=== PATIENT | female | born 1985 | race Caucasian/White ===

== ENCOUNTER 2017-09-09 16:20 | Emergency (ER) | payer OTHER ==
[~2017-09-09] VITALS: Ht 162.6 cm; Wt 61.9 kg
[2017-09-09 16:30] VITALS: Ht 162.6 cm; Wt 61.9 kg
[2017-09-09 17:24] LABS: BASOPHIL % 0.6 % (0-2); PLATELET COUNT 293 x10^3mcL (130-400); RED CELL DISTRIBUTION WIDTH 13.9 % (11.5-14.5)
[2017-09-09 17:33] LABS: CARBON DIOXIDE 26.7 mmol/L (21-32); CHLORIDE SERUM 103 mmol/L (98-107); CREATININE SERUM 0.6 mg/dL (0.6-1.0); GFR1 > 60 mL/min; GLUCOSE SERUM 105 mg/dL (74-106); POTASSIUM SERUM 3.7 mmol/L (3.5-5.1); SODIUM SERUM 138 mmol/L (136-145)
[2017-09-09 17:37] LABS: ALKALINE PHOSPHATASE 136 U/L (46-116); ALT/SGPT 34 U/L (14-59); AST/SGOT 17 U/L (15-37); BILIRUBIN TOTAL 0.2 mg/dL (0.20-1.00); TOTAL PROTEIN, SERUM 7.5 g/dL (6.4-8.2)
[2017-09-09 19:37] VITALS: BP 111/71
== END 2017-09-09 19:37 | disposition home or self-care (01) ==
LOC: ED 16:20
PROVIDERS: Emergency Medicine
DX: R42 Dizziness and giddiness (principal); R51 Headache; Z88.4 Allergy status to anesthetic agent
CPT/HCPCS: 36415; 82962

== ENCOUNTER 2017-11-25 13:44 | Emergency (ER) | payer OTHER ==
[~2017-11-25] VITALS: Ht 162.6 cm; Wt 61.2 kg
[2017-11-25 13:49] VITALS: Ht 162.6 cm; Wt 61.2 kg
[2017-11-25 15:30] VITALS: BP 115/60
== END 2017-11-25 15:30 | disposition home or self-care (01) ==
LOC: ED 13:44
DX: H01.005 Unspecified blepharitis left lower eyelid (principal)

== ENCOUNTER 2017-11-27 17:36 | Emergency (ER) | payer OTHER ==
[~2017-11-27] VITALS: Ht 162.6 cm; Wt 62.4 kg
[2017-11-27 17:42] VITALS: Ht 162.6 cm; Wt 62.4 kg
[2017-11-27 18:33] VITALS: BP 115/75
== END 2017-11-27 18:33 | disposition home or self-care (01) ==
LOC: ED 17:36
DX: H00.025 Hordeolum internum left lower eyelid (principal); Z88.8 Allergy status to other drugs, medicaments and biological substances

== ENCOUNTER 2018-04-02 15:48 | Emergency (ER) | payer OTHER ==
[~2018-04-02] VITALS: Ht 162.6 cm; Wt 61.2 kg
[2018-04-02 15:58] VITALS: BP 129/74; Ht 162.6 cm; Wt 61.2 kg
== END 2018-04-02 17:26 | disposition home or self-care (01) ==
LOC: ED 15:48
DX: H01.005 Unspecified blepharitis left lower eyelid (principal); H01.004 Unspecified blepharitis left upper eyelid; Z88.4 Allergy status to anesthetic agent